=== PATIENT | female | born 1990 | race African-American/Black ===

== ENCOUNTER → 2019-11-12 | Outpatient (CLI) | payer BC ==
[2019-11-12 10:54] LABS: APPEARANCE,URINE SLIGHTLY-CLOUDY; BILIRUBIN,URINE NEGATIVE (NEGATIVE); COLOR,URINE YELLOW; GLUCOSE, URINE NEGATIVE (NEGATIVE); KETONES,URINE NEGATIVE (NEGATIVE); LEUKOCYTE ESTERASE,URINE NEGATIVE (NEGATIVE); NITRITE,URINE NEGATIVE (NEGATIVE); PROTEIN,URINE 30 mg/dL (NEGATIVE); URINE AMPHETAMINES SCREEN NEGATIVE; URINE BARBITURATES SCREEN NEGATIVE; URINE BENZODIAZEPINES SCREEN NEGATIVE; URINE COCAINE SCREEN NEGATIVE; URINE MARIJUANA (THC) SCREEN NEGATIVE; URINE METHADONE SCREEN NEGATIVE; URINE PHENCYCLIDINE SCREEN NEGATIVE; URINE SPECIFIC GRAVITY 1.019; UROBILINOGEN,URINE NEGATIVE mg/dL (<2.0)
[2019-11-12 11:19] LABS: ABSOLUTE LYMPHOCYTES (AUTO) 1.4 10^3/uL (0.5-4.7); ABSOLUTE MONOCYTES (AUTO) 0.9 10^3/uL (0.1-1.4); ABSOLUTE NEUT (AUTO) 4.4 10^3/uL (1.7-8.2); BASOPHILS % (AUTO) 0.2 % (0-2); EOSINOPHILS % (AUTO) 0.4 % (0-6); HEMATOCRIT 27.7 % (36.0-47.0); HEMOGLOBIN 9.5 g/dL (12.0-15.5); LYMPHOCYTES % (AUTO) 21.1 % (13-45); MEAN CORPUSCULAR HEMOGLOBIN 25.9 pg (27.0-33.4); MEAN CORPUSCULAR HGB CONC 34.4 g/dL (32.0-36.0); MEAN CORPUSCULAR VOLUME 75 fl (80-97); MONOCYTES % (AUTO) 13.6 % (3-13); PLATELET COUNT 217 10^3/uL (150-450); RED BLOOD COUNT 3.68 10^6/uL (3.72-5.28); RED CELL DISTRIBUTION WIDTH 14.5 % (11.5-14.0); SEGMENTED NEUTROPHILS % (AUTO) 64.7 % (42-78); TOTAL CELLS COUNTED % (AUTO) 100 %; WHITE BLOOD COUNT 6.9 10^3/uL (4.0-10.5)
[2019-11-12 11:22] LABS: UR PRO/CREAT RATIO RESULT 0.1 mg/mg (0.0-0.2); URINE CREATININE 220.1 mg/dL (16-327); URINE PROTEIN 11.2 mg/dL (<12)
[2019-11-12 11:44] LABS: ALBUMIN 2.8 g/dL (3.5-5.0); ALKALINE PHOSPHATASE 158 U/L (38-126); ANION GAP 6 (5-19); ASPARTATE AMINO TRANSFERASE 27 U/L (14-36); BILIRUBIN,DIRECT 0.2 mg/dL (0.0-0.4); BILIRUBIN,TOTAL 0.3 mg/dL (0.2-1.3); BLOOD UREA NITROGEN 11 mg/dL (7-20); CALCIUM 8.6 mg/dL (8.4-10.2); CARBON DIOXIDE 20 mmol/L (22-30); CHLORIDE 108 mmol/L (98-107); GLUCOSE 70 mg/dL (75-110); POTASSIUM 3.6 mmol/L (3.6-5.0); TOTAL PROTEIN 6.1 g/dL (6.3-8.2)
== END ==
LOC: LC 09:46
PROVIDERS: ATTEND Student in an Organized Health Care Education/Training Program
DX: O13.3 Gestational [pregnancy-induced] hypertension without significant proteinuria, third trimester (principal); Z3A.38 38 weeks gestation of pregnancy
CPT/HCPCS: 36415; 80053; 80307; 81001; 82570; 83615; 84156; 84550; 85025

== ENCOUNTER 2019-11-18 19:20 | Inpatient (IN) | payer BC ==
[2019-11-18] MEDS ORDERED: RINGERS SOLUTION,LACTATED 1,000 ML IV ONE (19:45)
[2019-11-18] MEDS ORDERED: ACETAMINOPHEN 325 MG TABLET PO PRN (19:47)
[2019-11-18] MEDS ORDERED: DINOPROSTONE 10 MG VAGINAL INSERT.SR PV ONE (19:47)
[2019-11-18] MEDS ORDERED: ZOLPIDEM TARTRATE 5 MG TABLET PO PRN (19:47)
[2019-11-18] MEDS ORDERED: MAG HYDROX/AL HYDROX/SIMETH SUSP 30 ML UDCUP PO PRN (19:47)
[2019-11-18] MEDS ORDERED: DINOPROSTONE 10 MG VAGINAL INSERT.SR ONE (19:48)
[2019-11-18 20:41] LABS: ABSOLUTE LYMPHOCYTES (AUTO) 1.7 10^3/uL (0.5-4.7); ABSOLUTE MONOCYTES (AUTO) 1.1 10^3/uL (0.1-1.4); ABSOLUTE NEUT (AUTO) 5.1 10^3/uL (1.7-8.2); BASOPHILS % (AUTO) 0.2 % (0-2); EOSINOPHILS % (AUTO) 0.1 % (0-6); HEMATOCRIT 28.4 % (36.0-47.0); HEMOGLOBIN 9.3 g/dL (12.0-15.5); LYMPHOCYTES % (AUTO) 21.9 % (13-45); MEAN CORPUSCULAR HEMOGLOBIN 24.7 pg (27.0-33.4); MEAN CORPUSCULAR HGB CONC 32.6 g/dL (32.0-36.0); MEAN CORPUSCULAR VOLUME 76 fl (80-97); MONOCYTES % (AUTO) 14.1 % (3-13); PLATELET COUNT 218 10^3/uL (150-450); RED BLOOD COUNT 3.75 10^6/uL (3.72-5.28); RED CELL DISTRIBUTION WIDTH 14.9 % (11.5-14.0); SEGMENTED NEUTROPHILS % (AUTO) 63.7 % (42-78); TOTAL CELLS COUNTED % (AUTO) 100 %
[2019-11-18] MEDS: RINGERS SOLUTION,LACTATED 1,000 ML IV PRN (20:45)
[2019-11-18 20:48] LABS: APPEARANCE,URINE SLIGHTLY-CLOUDY; BILIRUBIN,URINE NEGATIVE (NEGATIVE); COLOR,URINE YELLOW; GLUCOSE, URINE NEGATIVE (NEGATIVE); KETONES,URINE NEGATIVE (NEGATIVE); LEUKOCYTE ESTERASE,URINE NEGATIVE (NEGATIVE); NITRITE,URINE NEGATIVE (NEGATIVE); PROTEIN,URINE 30 mg/dL (NEGATIVE); URINE SPECIFIC GRAVITY 1.019
[2019-11-18 20:52] LABS: ALBUMIN 3.1 g/dL (3.5-5.0); ALKALINE PHOSPHATASE 178 U/L (38-126); ANION GAP 8 (5-19); ASPARTATE AMINO TRANSFERASE 22 U/L (14-36); BILIRUBIN,DIRECT 0.2 mg/dL (0.0-0.4); BILIRUBIN,TOTAL 0.3 mg/dL (0.2-1.3); BLOOD UREA NITROGEN 9 mg/dL (7-20); CALCIUM 8.7 mg/dL (8.4-10.2); CARBON DIOXIDE 19 mmol/L (22-30); CHLORIDE 107 mmol/L (98-107); GLUCOSE 79 mg/dL (75-110); TOTAL PROTEIN 6.5 g/dL (6.3-8.2); URIC ACID 5.7 mg/dL (2.5-6.2)
[2019-11-18 21:01] LABS: URINE AMPHETAMINES SCREEN NEGATIVE; URINE BARBITURATES SCREEN NEGATIVE; URINE BENZODIAZEPINES SCREEN NEGATIVE; URINE COCAINE SCREEN NEGATIVE; URINE MARIJUANA (THC) SCREEN NEGATIVE; URINE METHADONE SCREEN NEGATIVE; URINE PHENCYCLIDINE SCREEN NEGATIVE
[2019-11-18 21:06] LABS: UR PRO/CREAT RATIO RESULT 0.1 mg/mg (0.0-0.2); URINE CREATININE 207.9 mg/dL (16-327); URINE PROTEIN 16.9 mg/dL (<12)
[2019-11-18] MEDS ORDERED: MISOPROSTOL 0.2 MG TABLET ONE (22:23)
[2019-11-18] MEDS ORDERED: LIDOCAINE 1% INJ-PF (10 MG/ML) 30 ML SDV ONE (22:23)
[2019-11-18] MEDS ORDERED: OXYTOCIN/NORMAL SALINE 20 UNIT/1,000 ML RTUINJ ONE (22:23)
[2019-11-18] MEDS ORDERED: OXYTOCIN 10 UNIT/ML VIAL ONE (22:23)
--- NOTE | 2019-11-19 04:46 | Admission Physical ---
Datetime Report Generated by CPN: 11/19/2019 04:46 CURRENT ADMISSION Chief Complaint: Scheduled Induction of Labor Indication for Induction: Gestational HTN Admit Impression : Term, Intrauterine ; No Active Labor; Intact Membranes; Induction of Labor Admit Plan: Admit to Unit; Initiate Labor Induction Protocol ALLERGIES Medication Allergies: No Medication Allergies: No Known Allergies (11/12/2019) Latex: No Latex Allergies OBSTETRICAL HISTORY EDC: 11/25/2019 00:00 : 4 Para: 0 Term: 0 : 0 SAB: 0 IAB: 0 Ectopic: 0 Livin Cesareans: 0 VBACs: 0 Multiple Births: 0 Gestational Diabetes: No Rh Sensitization: No Incompetent Cervix: No HARISH: No Infertility: No ART Treatment: No Uterine Anomaly: No IUGR: No Hx Previous C/S: No Macrosomia: No Hx Loss/Stillborn: No PIH: No Hx : No Placenta Previa/Abruption: No Depression/PP Depression: No PTL/PROM: No Post Hemorrhage: No Current Procedures: Ultrasound; NST Obstetrical History Comments: 2006 EAB 2018 SAB 2018 SAB G4- current SEE RECORDS Alcohol: No Marijuana : No Cocaine: No Other Illicit Drugs: No Cigarettes: Former Smoker. [id number] MEDICAL HISTORY Diabetes: No Blood Transfusion: No Pulmonary Disease (Asthma, TB): No Breast Disease: No Hypertension: No Duck Bill Operator Surgery: No Heart Disease: No Hosp/Surgery: No Autoimmune Disorder: No Anesthetic Complications: No Kidney Disease: No Abnormal Pap Smear: No Neuro/Epilepsy: No Psychiatric Disorders: No Other Medical Diseases: No Hepatitis/Liver Disease: No Significant Family History: No Varicosities/Phlebitis: No Trauma/Violence : No Thyroid Dysfunction: No INFECTIOUS HISTORY Gonorrhea: No Genital Herpes: No Chlamydia: No Tuberculosis: No Syphilis: No Hepatitis: No HIV/AIDS Exposure: No Rash or Viral Illness: No HPV: No PHYSICAL EXAM General: Normal HEENT: Normal Neurologic: Normal Thyroid: Deferred Heart: Normal Lungs: Deferred Breast: Normal Back: Normal Abdomen: Normal Genitourinary Exam: Normal Extremities: Normal DTRs: Normal Pelvic Type: Adequate Vital Signs: Reviewed VAGINAL EXAM Dilatation: 1 Effacement: 50 Station: -3 Contraction Comments: none FETUS A EGA: 39.0 Monitoring: External US FHR- Baseline: 145 Variability: Moderate 6-25bpm Accelerations: 15X15 Decelerations: None FHR Category: Category I Presentation: Vertex Admit Comment: 29yo at 39+0ega presents for IOL due to GHTN. Transfer OB at 37wks. see records. 24 hr UTP 297mg on 11/10. Anemia. US On 11/11 vertex. 7#6oz. Admit to labor and delivery. Cervidil and then plan Cooks catheter and pitocin. ANticipate . PLANS FOR LABOR AND DELIVERY Labor and Delivery: None Feeding Preference: Breast Benefit of Breast Feed Discussed: Yes Circumcision: N/A INFORMED CONSENT Informed Consent Obtained: Vaginal Delivery; Induction of Labor; Risks, Benefits and Alternatives Discussed Signature: with User ID: [email or web address]
[2019-11-19] MEDS ORDERED: HYDROMORPHONE HCL INJ/PF 2 MG/ML AMPULE ONE ×2 (08:00→11:44)
[2019-11-19] MEDS ORDERED: HYDROMORPHONE HCL INJ/PF 2 MG/ML AMPULE IV ONE ×2 (08:15→12:19)
[2019-11-19] MEDS ORDERED: OXYTOCIN/NORMAL SALINE 0 UNIT/0 ML RTUINJ ONE (09:12)
[2019-11-19] MEDS ORDERED: MISOPROSTOL 0.2 MG TABLET ONE (09:12)
[2019-11-19] MEDS ORDERED: LIDOCAINE 1% INJ-PF (10 MG/ML) 30 ML SDV ONE (09:12)
[2019-11-19] MEDS ORDERED: OXYTOCIN 10 UNIT/ML VIAL ONE ×2 (09:12→17:08)
[2019-11-19] MEDS ORDERED: BUPIVACAINE HCL 0.25 % INJ/PF (2.5 MG/1 ML) 30 ML VIAL ONE (14:19)
[2019-11-19] MEDS ORDERED: EPHEDRINE SULFATE INJ 50 MG/1 ML AMPULE ONE (14:19)
[2019-11-19] MEDS ORDERED: FENTANYL/BUPIVACAINE/NS/PF 300 MCG/150 ML RTUINJ EPI ONE (14:19)
[2019-11-19] MEDS ORDERED: CITRIC ACID/SODIUM CITRATE ORAL SOLN 15 ML UDCUP ONE (16:44)
[2019-11-19] MEDS ORDERED: CEFAZOLIN 1 GM/D5W RTU 2 GM/100 ML RTUPB IV ONE (16:44)
[2019-11-19] MEDS ORDERED: LIDOCAINE 2% INJ-PF (20 MG/ML) 10 ML AMPUL ONE (16:45)
[2019-11-19] MEDS ORDERED: MIDAZOLAM 2 MG/2 ML INJ ONE (17:08)
[2019-11-19] MEDS ORDERED: OXYTOCIN/NORMAL SALINE 20 UNIT/1,000 ML RTUINJ ONE (17:09)
[2019-11-19] MEDS ORDERED: MORPHINE SULFATE 10 MG/ML INJ ONE (17:09)
[2019-11-19] MEDS ORDERED: ONDANSETRON HCL INJ/PF 4 MG/2 ML SDV ONE (17:09)
[2019-11-19] MEDS ORDERED: DIPH/PERTUSS(ACELL)/TETANUS VAC/PF 0.5 ML SYR (>=10YO) IM PRN (18:03)
[2019-11-19] MEDS ORDERED: ACETAMINOPHEN 325 MG TABLET PO PRN (18:03)
[2019-11-19] MEDS ORDERED: MEASLES,MUMPS&RUBELLA VACC/PF 0.5 ML VIAL SUBCUT PRN (18:03)
[2019-11-19] MEDS ORDERED: OXYTOCIN/NORMAL SALINE 20 UNIT/1,000 ML RTUINJ IV PRN (18:03)
[2019-11-19] MEDS ORDERED: ACETAMINOPHEN 1,000 MG/100 ML RTUPB IV PRN ×2 (18:03→18:33)
[2019-11-19] MEDS ORDERED: SIMETHICONE 80 MG TAB.CHEW PO PRN (18:03)
[2019-11-19] MEDS ORDERED: PROMETHAZINE HCL INJ 25 MG/1 ML VIAL IV PRN (18:03)
--- NOTE | 2019-11-19 18:08 | Operative Report ---
Operative Report DATE OF SURGERY: 11/19/19 PREOPERATIVE DIAGNOSIS: AB at term gestational hypertension and nonreassuring f etal heart rate tracing POSTOPERATIVE DIAGNOSIS: Same OPERATION: Primary low transverse section delivery of viable female SURGEON: HOMERO WISE ANESTHESIA: Epidural TISSUE REMOVED OR ALTERED: Placenta PROCEDURE: The patient was taken to the operating room where spinal anesthesia was obtained and found to be adequate. She was then prepped and draped in the normal sterile fashion and placed in the dorsal supine position with a leftward tilt. A Pfannenstiel skin incision was then made and carried through to the underlying layers of the fascia with the scalpel. The fascia was incised in the midline and the incision extended laterally with the Henriquez scissors. The superior aspect of the fascial incision was then grasped with [place]atham clamps elevated and the underlying rectus muscles dissected off bluntly. Attention was then turned to the inferior aspect of the fascial incision which in a similar fashion was grasped, tented up with Emily clamps, and the rectus muscles dissected off bluntly. The rectus muscles were then in the midline and the peritoneum at the amount identified and entered bluntly. The peritoneal incision was then extended superiorly and inferiorly with good visualization of the bladder. [The bladder blade was inserted and the vesicouterine peritoneum identified grasped with Portuguese pickups and entered sharply with the Metzenbaum scissors. His incision was then extended laterally with the Metzenbaum scissors and a bladder flap created digitally. The bladder blade was then reinserted and the lower uterine segment incised in a transverse fashion with the scalpel. The uterine incision was then extended bluntly. The bladder blade was removed and the 's head was delivered from cephalic presentation atraumatically. The nose and mouth were suctioned and the cord doubly clamped and cut. And the was handed off to waiting pediatricians. The placenta was then delivered manully and the uterus exteriorized and cleared of all clots and debris. The uterine incision was then repaired with 1-0 Vicryl in a running locked fashion. A second layer of the same suture was used to obtain hemostasis via imbrication of the initial layer. The uterus was returned to the patient's abdomen. The gutters were cleared of all clots and debris. All operative sites were noted to be hemostatic. The fascia was reapproximated with 0 Vicryl in a running fashion from each lateral edge to the midline. The patient tolerated the procedure well. Sponge lap needle and instrument counts are correct -2. 2 g of Ancef were given prior to skin incision. The patient was taken to the recovery area awake and in stable condition.
[2019-11-19] MEDS ORDERED: KETOROLAC TROMETHAMINE INJ/PF 30 MG/1 ML SDV IV ONE (18:26)
[2019-11-19] MEDS ORDERED: KETOROLAC TROMETHAMINE INJ/PF 30 MG/1 ML SDV ONE (18:34)
[2019-11-19] MEDS ORDERED: HYDRALAZINE HCL INJ/PF 20 MG/1 ML SDV IV ONE (19:10)
[2019-11-19] MEDS ORDERED: HYDRALAZINE HCL INJ/PF 20 MG/1 ML SDV ONE (19:15)
[2019-11-19] MEDS ORDERED: LABETALOL HCL 200 MG TABLET ONE (19:15)
[2019-11-19] MEDS ORDERED: LABETALOL HCL 200 MG TABLET PO SCH (19:15)
[2019-11-19] MEDS ORDERED: ACETAMINOPHEN 1,000 MG/100 ML RTUPB IV ONE (19:39)
--- NOTE | 2019-11-19 21:00 | Delivery Summary ---
Del Sum A-C Datetime Report Generated by CPN: 11/19/2019 20:59 DELIVERY PERSONNEL DELIVERY PERSONNEL: [id number] Delivery Doctor:: Edward Landis MD Anesthesiologist:: Jose Downey MD BODY AND FENDER WORKER:: Medhat Wray CRNA Die Maintenance Technician:: Xin Willis RN Vehicle Damage Appraiser/COMMAND AND CONTROL OFFICER: Barbara Georges CST Vehicle Damage Appraiser/COMMAND AND CONTROL OFFICER: Sarita Bess, CHOCOLATIER MATERNAL INFORMATION Delivery Anesthesia: Epidural Medications After Delivery: Pitocin Bolus-Please Comment; Pitocin Drip 20 Units/1000ml NSS Meds After Delivery Comment: 20 Units Pitocin/1000 ml NS Delivery QBL: 610 Maternal Complications: None Other Maternal Complications: non reassuring strip LABOR SUMMARY EDC: 11/25/2019 00:00 No. Babies in Womb: 1 Attempted: No Labor Anesthesia: Epidural LABOR INFORMATION Reason for Induction: Gestational Hypertension Cervical Ripening Agents: Cervidil Oxytocin: Induction Group B Beta Strep: Neg Antibiotics # of Doses: 0 Antibiotics Time of Last Dose: n/a Name of Antibiotic Given: n/a Steroids Given: None Reason Steroids Not Administered: Not Applicable MEMBRANES Membranes Rupture Method: Spontaneous Rupture of Membranes: 11/19/2019 04:30 Length of Rupture (hr): 13.13 Amniotic Fluid Color: Clear Amniotic Fluid Amount: Large Amniotic Fluid Odor: Normal STAGES OF LABOR Stage 3 hr: 0 Stage 3 min: 0 VAGINAL DELIVERY Laceration Extension #1: N/A Laceration Repair: Not Applicable Sponge Count Correct: N/A Sharps Count Correct: N/A CSECTION DELIVERY Primary Indication: Nonreassuring Status CSection Urgency: Non-Scheduled CSection Incidence: Primary Labor: Labor Elective: Nonelective CSection Incision: Lower Uterine Transverse BABY A INFORMATION Infant Delivery Date/Time: 11/19/2019 17:38 Method of Delivery: Nurse Controlled Delivery: No Born in Route : No : N/A Forceps: N/A Vacuum Extraction: N/A Shoulder Dystocia : No PRESENTATION/POSITION BABY A Presentation: Cephalic Cephalic Presentation: Vertex PLACENTA INFORMATION BABY A Placenta Delivery Time : 11/19/2019 17:38 Placenta Method of Delivery: Manual Removal Placenta Status: Delivered SCORES BABY A Heart Rate 1 min: >100 bpm Resp Effort 1 min: Good Cry Reflex Irritability 1 min: Cough or Sneeze or Pulls Away Muscle Tone 1 min: Active Motion Color 1 min: Blue/Pale Resuscitation Effort 1 min: Tactile Stimulation SCORE 1 MIN: 8 Heart Rate 5 min: >100 bpm Resp Effort 5 min: Good Cry Reflex Irritability 5 min: Cough or Sneeze or Pulls Away Muscle Tone 5 min: Active Motion Color 5 min: Body [place], Extremities Blue Resuscitation Effort 5 min: Tactile Stimulation SCORE 5 MIN: 9 INFORMATION BABY A Gestational Age at Delivery: 39.0 Gestational Status: Full Term- 39- 40.6 Weeks Infant Outcome : Liveborn Condition : Stable Sex: Female IDENTIFICATION BABY A Verification Date/Time: 11/19/2019 18:21 ID Band Number: [id number] Mother's Name Verified: Yes RN Verifying Infant: Jesus,RN Additional [facility] WEIGHT/LENGTH BABY A Birthweight (gm): 3280 Weight (lb): 7 Infant Weight (oz): 4 Length (in): 19.50 Infant Length (cm): 49.53 CORD INFORMATION BABY A No. Cord Vessels: 3 Nuchal Cord : N/A Cord Blood Taken: Yes-For Eval (Mom's Blood Type - or O+) ASSESSMENT BABY A Complications: Decreased Variability; Multiple Late Decels Physical Findings- Other: see nursery assessment Skin to Skin: No Transferred To: [facility] BABY B INFORMATION : N/A SIGNATURES Signature: with User ID: [email or web address]
[2019-11-19] MEDS ORDERED: KETOROLAC TROMETHAMINE INJ/PF 30 MG/1 ML SDV IV SCH (22:00)
[2019-11-20] MEDS: RINGERS SOLUTION,LACTATED 1,000 ML IV PRN (01:51)
[2019-11-20] MEDS: KETOROLAC TROMETHAMINE INJ/PF 30 MG/1 ML SDV IV SCH ×2 (01:52→09:13)
[2019-11-20] MEDS: LABETALOL HCL 200 MG TABLET PO SCH ×3 (02:10→22:04)
[2019-11-20] MEDS: OXYCODONE-ACETAMINOPHEN 5-325 MG TABLET PO PRN ×3 (06:50→22:04)
[2019-11-20 07:11] LABS: HEMATOCRIT 24.4 % (36.0-47.0); HEMOGLOBIN 8.2 g/dL (12.0-15.5); MEAN CORPUSCULAR HEMOGLOBIN 25.1 pg (27.0-33.4); MEAN CORPUSCULAR HGB CONC 33.5 g/dL (32.0-36.0); MEAN CORPUSCULAR VOLUME 75 fl (80-97); PLATELET COUNT 205 10^3/uL (150-450); RED BLOOD COUNT 3.26 10^6/uL (3.72-5.28); RED CELL DISTRIBUTION WIDTH 14.8 % (11.5-14.0); WHITE BLOOD COUNT 9.4 10^3/uL (4.0-10.5)
[2019-11-20] MEDS: PRENATAL VITAMIN W DHA CAPSULE PO SCH (09:14)
[2019-11-20] MEDS: DOCUSATE SODIUM 100 MG CAPSULE PO SCH ×2 (09:14→17:33)
[2019-11-20] MEDS ORDERED: KETOROLAC TROMETHAMINE INJ/PF 30 MG/1 ML SDV IV SCH (10:01)
--- NOTE | 2019-11-20 11:22 | PDOC PROGRESS REPORT ---
Subjective-OB Progress Note for:: 11/20/19 Subjective: reports bleeding slowing, pain controlled with current meds. + passing gas, denies needs Physical Exam (OB) Vital Signs: Temp Pulse Resp BP Pulse Ox 97.8 F 77 18 116/58 L 98 11/20/19 11:02 11/20/19 11:02 11/20/19 11:02 11/20/19 11:02 11/20/19 11:02 Intake & Output 11/19/19 11/20/19 11/21/19 06:59 06:59 06:59 Intake Total 1000 1000 Output Total 475 200 Balance 1000 -475 800 Weight 121.2 kg - Dressing Removed: Yes Incision: Dressing - steristrips covered with peripad after removal of presure dsg Closure Type: Steri-Strips - Abdomen Description: Tender, Soft, Round Hernia Present: No Fundal Description: Firm, Midline Fundal Height: u/u - u/2 - Abdominal Distension: No distension - Extremities Lower extremities: Lottie's sign - neg Calf: Normal, Nontender Objective-Diagnostic Laboratory: 11/20/19 06:40 11/18/19 20:21 11/20/19 06:40 WBC 9.4 RBC 3.26 L Hgb 8.2 L Hct 24.4 L MCV 75 L MCH 25.1 L MCHC 33.5 RDW 14.8 H Plt Count 205 Assessment and Plan(PN) - Assessment and Plan (1) Anemia complicating Is this a current diagnosis for this admission?: Yes (2) intolerance to labor, delivered, current hospitalization Is this a current diagnosis for this admission?: Yes (3) Gestational hypertension Is this a current diagnosis for this admission?: Yes (4) S/P primary low transverse Is this a current diagnosis for this admission?: Yes (5) Spontaneous rupture of membranes Is this a current diagnosis for this admission?: Yes - Time Spent with Patient Time with patient: Less than 15 minutes Medications reviewed and adjusted accordingly: Yes - Disposition Anticipated Discharge: Home Within: within 48 hours
[2019-11-20] MEDS: IBUPROFEN 800 MG TABLET PO SCH (17:33)
[2019-11-21] MEDS: IBUPROFEN 800 MG TABLET PO SCH ×3 (00:32→13:19)
--- NOTE | 2019-11-21 08:44 | PDOC DISCHARGE SUMMARY ---
Impression - Admit/DC Date/PCP Admission Date/Primary Care Provider: 11/18/19 19:20 YULIA MCGUIRE MD Discharge Date: 11/21/19 - Discharge Diagnosis (1) Anemia complicating Is this a current diagnosis for this admission?: Yes (2) intolerance to labor, delivered, current hospitalization Is this a current diagnosis for this admission?: Yes (3) Gestational hypertension Is this a current diagnosis for this admission?: Yes (4) S/P primary low transverse Is this a current diagnosis for this admission?: Yes (5) Spontaneous rupture of membranes Is this a current diagnosis for this admission?: Yes - Additional Information Discharge Diet: Regular Discharge Activity: Balance Activity w/Rest, No Lifting Over 10 Pounds, No Lifting/Push/Pulling, Pelvic Rest, No tub bath Referrals: YULIA MCGUIRE MD [Primary Care Provider] - Prescriptions: Ibuprofen [Motrin 800 mg Tablet] 800 mg PO Q8HP PRN #60 tablet PRN Reason: Labetalol HCl [Normodyne 200 mg Tablet] 200 mg PO Q12 #60 tablet Oxycodone HCl/Acetaminophen [Percocet 5-325 mg Tablet] 1 tab PO Q4HP PRN #30 tablet PRN Reason: Home Medications: Prenat 115/Iron Fum/Folic/Dss [ 19 Tablet] 1 tab PO DAILY 11/18/19 Ibuprofen [Motrin 800 mg Tablet] 800 mg PO Q8HP PRN #60 tablet 11/21/19 Labetalol HCl [Normodyne 200 mg Tablet] 200 mg PO Q12 #60 tablet 11/21/19 Oxycodone HCl/Acetaminophen [Percocet 5-325 mg Tablet] 1 tab PO Q4HP PRN #30 tablet 11/21/19 HPI Gestational Age: 39 Reason(s) for Admission: Induction of Labor - GHTN Intrapartum Procedure(s): : Low Cervical, Transverse - NRFHT Results Laboratory Results: WBC 9.4 10^3/uL (4.0-10.5) 11/20/19 06:40 RBC 3.26 10^6/uL (3.72-5.28) L 11/20/19 06:40 Hgb 8.2 g/dL (12.0-15.5) L 11/20/19 06:40 Hct 24.4 % (36.0-47.0) L 11/20/19 06:40 MCV 75 fl (80-97) L 11/20/19 06:40 MCH 25.1 pg (27.0-33.4) L 11/20/19 06:40 MCHC 33.5 g/dL (32.0-36.0) 11/20/19 06:40 RDW 14.8 % (11.5-14.0) H 11/20/19 06:40 Plt Count 205 10^3/uL (150-450) 11/20/19 06:40 Lymph % (Auto) 21.9 % (13-45) 11/18/19 20:21 Bowie % (Auto) 14.1 % (3-13) H 11/18/19 20:21 Eos % (Auto) 0.1 % (0-6) 11/18/19 20:21 Baso % (Auto) 0.2 % (0-2) 11/18/19 20:21 Absolute Neuts (auto) 5.1 10^3/uL (1.7-8.2) 11/18/19 20:21 Absolute Lymphs (auto) 1.7 10^3/uL (0.5-4.7) 11/18/19 20:21 Absolute Monos (auto) 1.1 10^3/uL (0.1-1.4) 11/18/19 20:21 Absolute Eos (auto) 0.0 10^3/uL (0.0-0.6) 11/18/19 20:21 Absolute Basos (auto) 0.0 10^3/uL (0.0-0.2) 11/18/19 20:21 Seg Neutrophils % 63.7 % (42-78) 11/18/19 20:21 Sodium 133.8 mmol/L (137-145) L 11/18/19 20:21 Potassium 4.0 mmol/L (3.6-5.0) 11/18/19 20:21 Chloride 107 mmol/L (98-107) 11/18/19 20:21 Carbon Dioxide 19 mmol/L (22-30) L 11/18/19 20:21 Anion Gap 8 (5-19) 11/18/19 20:21 BUN 9 mg/dL (7-20) 11/18/19 20:21 Creatinine 0.90 mg/dL (0.52-1.25) 11/18/19 20:21 Est GFR ( Amer) > 60 (>60) 11/18/19 20:21 Est GFR (MDRD) Non-Af > 60 (>60) 11/18/19 20:21 Glucose 79 mg/dL (75-110) 11/18/19 20:21 Uric Acid 5.7 mg/dL (2.5-6.2) 11/18/19 20:21 Calcium 8.7 mg/dL (8.4-10.2) 11/18/19 20:21 Total Bilirubin 0.3 mg/dL (0.2-1.3) 11/18/19 20:21 Direct Bilirubin 0.2 mg/dL (0.0-0.4) 11/18/19 20:21 Neonat Total Bilirubin Not Reportable 11/18/19 20:21 Neonat Direct Bilirubin Not Reportable 11/18/19 20:21 Neonat Indirect Bili Not Reportable 11/18/19 20:21 AST 22 U/L (14-36) 11/18/19 20:21 ALT 15 U/L (<35) 11/18/19 20:21 Alkaline Phosphatase 178 U/L (38-126) H 11/18/19 20:21 Total Protein 6.5 g/dL (6.3-8.2) 11/18/19 20:21 Albumin 3.1 g/dL (3.5-5.0) L 11/18/19 20:21 Urine Color YELLOW 11/18/19 19:34 Urine Appearance SLIGHTLY-CLOUDY 11/18/19 19:34 Urine pH 6.0 (5.0-9.0) 11/18/19 19:34 Ur Specific Bath 1.019 11/18/19 19:34 Urine Protein 30 mg/dL (NEGATIVE) H 11/18/19 19:34 Urine Glucose (UA) NEGATIVE mg/dL (NEGATIVE) 11/18/19 19:34 Urine Ketones NEGATIVE mg/dL (NEGATIVE) 11/18/19 19:34 Urine Blood NEGATIVE (NEGATIVE) 11/18/19 19:34 Urine Nitrite NEGATIVE (NEGATIVE) 11/18/19 19:34 Urine Bilirubin NEGATIVE (NEGATIVE) 11/18/19 19:34 Urine Urobilinogen 2.0 mg/dL (<2.0) H 11/18/19 19:34 Ur Leukocyte Esterase NEGATIVE (NEGATIVE) 11/18/19 19:34 Urine WBC (Auto) 2 /HPF 11/18/19 19:34 Squamous Epi Cells Auto 9 /HPF 11/18/19 19:34 Urine Mucus (Auto) OCC /LPF 11/18/19 19:34 Urine Creatinine 207.9 mg/dL (16-327) 11/18/19 19:34 Protein/Creatinin Ratio 0.1 mg/mg (0.0-0.2) 11/18/19 19:34 Urine Total Protein 16.9 mg/dL (<12) H 11/18/19 19:34 Urine Ascorbic Acid NEGATIVE (NEGATIVE) 11/18/19 19:34 Membranes Rupture POSITIVE (NEGATIVE) H 11/19/19 04:50 Urine Opiates Screen NEGATIVE 11/18/19 19:34 Urine Methadone Screen NEGATIVE 11/18/19 19:34 Ur Barbiturates Screen NEGATIVE 11/18/19 19:34 Ur Phencyclidine Scrn NEGATIVE 11/18/19 19:34 Ur Amphetamines Screen NEGATIVE 11/18/19 19:34 U Benzodiazepines Scrn NEGATIVE 11/18/19 19:34 Urine Cocaine Screen NEGATIVE 11/18/19 19:34 U Marijuana (THC) Screen NEGATIVE 11/18/19 19:34 RPR NONREACTIVE (NONREACTIVE) 11/18/19 20:21 Blood Type O POSITIVE 11/18/19 20:21 Antibody Screen NEGATIVE 11/18/19 20:21 Plan Plan of Treatment: follow up in one week at [facility] for BP/incision check
[2019-11-21] MEDS: DOCUSATE SODIUM 100 MG CAPSULE PO SCH (11:33)
[2019-11-21] MEDS: PRENATAL VITAMIN W DHA CAPSULE PO SCH (11:34)
[2019-11-21] MEDS: LABETALOL HCL 200 MG TABLET PO SCH (11:34)
[2019-11-21 11:47] VITALS: BP 145/78
== END 2019-11-21 13:25 | disposition home or self-care (01) | DRG 788 ==
LOC: LR 19:20 → 2S 11-19 20:04
PROVIDERS: ADMIT Student in an Organized Health Care Education/Training Program; ATTEND Student in an Organized Health Care Education/Training Program
PROC: 10D00Z1 Extraction of Products of Conception, Low, Open Approach (ICD-10-PCS; principal; 2019-11-19)
PROC: 3E033VJ Introduction of Other Hormone into Peripheral Vein, Percutaneous Approach (ICD-10-PCS; 2019-11-19)
DX: O13.4 Gestational [pregnancy-induced] hypertension without significant proteinuria, complicating childbirth (principal); O99.02 Anemia complicating childbirth; O76 Abnormality in fetal heart rate and rhythm complicating labor and delivery; Z3A.39 39 weeks gestation of pregnancy; Z37.0 Single live birth; Z87.891 Personal history of nicotine dependence
CPT/HCPCS: 1961; 36415; 80053; 80307; 81001; 82570; 84112; 84156; 84550; 85025; 85027; 86592; 86850; 86900; 86901; 90715; 94760; 94799; C1758; J0131; J0360; J0690; J1170; J1885; J2250; J2270; J2405; J2590; J3010; J3490; J7120